=== PATIENT | female | born 1995 | race Caucasian/White ===

== ENCOUNTER 2017-01-30 21:50 | Outpatient (CLI) | payer OTHER ==
[~2017-01-30] VITALS: Ht 157.5 cm; Wt 47.8 kg
[~2017-01-30 21:50] MED LIST: DOCU-144 PO; PREN1TAB62 PO
[2017-01-30 22:34] VITALS: Ht 157.5 cm; Wt 47.8 kg
[2017-01-30 23:01] LABS: ADD SCAN DIFF NO
[2017-01-30 23:04] LABS: BASOPHILS % 0.3 % (0.0-2.0); EOSINOPHILS # 0.1 10^3/ul (0.0-0.5); EOSINOPHILS % 1.3 % (0.0-7.0); HEMATOCRIT 29.6 % (37.0-47.0); HEMOGLOBIN 9.9 g/dl (12.0-16.0); LYMPHOCYTES # 2.1 10^3/ul (0.8-2.9); LYMPHOCYTES % 20.2 % (18.0-55.0); MEAN CORPUSCULAR HEMOGLOBIN 27.3 pg (29.0-33.0); MEAN CORPUSCULAR HGB CONC 33.4 g/dl (32.0-37.0); MEAN CORPUSCULAR VOLUME 81.8 fl (72.0-104.0); MEAN PLATELET VOLUME 8.7 fl (7.4-10.4); MONOCYTES % 9.4 % (0.0-13.0); NEUTROPHIL # 7.1 10^3/ul (1.6-7.5); NEUTROPHILS % 68.3 % (30.0-74.0); PLATELET COUNT 382 10^3/UL (140-415); RED BLOOD COUNT 3.62 10^6/ul (4.20-5.40); RED CELL DISTRIBUTION WIDTH 14.4 % (11.5-14.5); WHITE BLOOD COUNT 10.4 10^3/ul (4.8-10.8)
[2017-01-30 23:12] LABS: ADD UMIC YES; UR ASCORBIC ACID 20 mg/dL (NEGATIVE); UR BILIRUBIN (Dip) 1+ mg/dL (NEGATIVE); UR BLOOD (Dip) NEGATIVE (NEGATIVE); UR CLARITY SLIGHTLY CLOUDY (CLEAR); UR COLOR AMBER (YELLOW); UR GLUCOSE (Dip) 1+ mg/dL (NEGATIVE); UR KETONES (Dip) TRACE mg/dL (NEGATIVE); UR LEUKOCYTE ESTERASE (Dip) NEGATIVE Leu/ul (NEGATIVE); UR MUCUS MANY /HPF (NONE SEEN); UR NITRITE (Dip) NEGATIVE (NEGATIVE); UR RBC 1 /HPF (0-5); UR SPECIFIC GRAVITY (Dip) 1.038 (1.003-1.030); UR SQUAMOUS EPITHELIAL CELL FEW /HPF (FEW); UR TOTAL PROTEIN (Dip) 1+ mg/dl (NEGATIVE); UR UROBILINOGEN (Dip) 1+ mg/dL (NEGATIVE)
[2017-01-30 23:28] LABS: CANNABINOIDS Negative (NEGATIVE); OPIATES Positive (NEGATIVE)
[2017-01-30 23:30] LABS: BARBITURATES Negative (NEGATIVE); BENZODIAZEPINES Negative (NEGATIVE); COCAINE Negative (NEGATIVE)
--- NOTE | 2017-01-30 23:38 | RADRPT ---
PROCEDURE: US OB. CLINICAL INDICATION: labor. TECHNIQUE: Multiple sonographic images of the pelvis were obtained. Transabdominal imaging only w as performed. The images were reviewed on a PACS workstation. COMPARISON: No prior studies are available for comparison. FINDINGS: The cervix is closed with a length of 3.0 cm. There is a single viable intrauterine gestation. Cardiac activity is present with 147 beats per minute. There is a breech presentation, head maternal left. Measurements were made in order to determine age. The results are as follows: BPD = 4.81 cm HC = 18.60 cm AC = 16.89 cm FL = 3.73 cm Estimated gestational age of approximately 21 weeks 2 days. The estimated date of delivery is 06/10/2017. The EFW = 447 g. The placenta is anterior, grade 0. There is no evidence for an abruption or placenta previa. There is a normal amount of amniotic fluid. The MVP measures 5.7 cm. IMPRESSION: 1. Single viable intrauterine gestation of approximately 21 weeks 2 days, based on ultrasound measu rements. The estimated date of delivery is 06/10/2017. RPTAT: HTAR .Palmer Freeman MD, Date Time Electronically viewed and signed by .Palmer Freeman MD, MD on 01/30/2017 23:38 .R/
--- NOTE | 2017-01-31 01:11 | TRIAGE ---
OB Triage Datetime Report Generated by CPN: 01/31/2017 01:11 Datetime: 01/31/2017 01:08 Stage of : OB Triage Datetime: 01/31/2017 01:02 Stage of : OB Triage Datetime: 01/31/2017 01:00 Stage of : OB Triage Datetime: 01/31/2017 00:46 Heart Rate FHR Baseline Rate: 155 Comments: EFM HEART TONES Datetime: 01/30/2017 23:58 Comments: UNABLE TO KEEP CONTINUOUS FHT D/T GA AND CONSTANT PATIENT MOVEMENT Datetime: 01/30/2017 23:05 Stage of : OB Triage Datetime: 01/30/2017 22:17 EGA: 21.2 Datetime: 01/30/2017 22:16 Time of Arrival: 01/30/2017 21:41 Arrived By: Wheelchair Arrived From: Home Chief Complaint: UC'S Movement: Present Contractions: Regular Contractions: CONSTANT Rupture of Membranes: Denies Vaginal Discharge: Denies Recent Sexual Intercouse: Denies Abdominal Trauma: Not Applicable Patient Complaints: Contractions Time Provider Notified: 01/30/2017 22:28 Provider Notified: HADADIAN Initial Plan: EFM, CALL OB Datetime: 01/30/2017 22:13 Stage of : OB Triage Temperature Route: Oral Labor Evaluation Monitor Mode: Palpation Resting Tone [place]: Relaxed Monitor Mode: External US Comments: UNABLE TO KEEP ON MONITOR, ONLY ABLE TO GRAVITY METER OBSERVER SPORADIC HEART TONES WITH EFM, PO SSIBLE FETUS UNDER 20WKS GA Datetime: 01/30/2017 22:00 Stage of : OB Triage Assessment Type: Triage Maternal Assessment Level of Consciousness: Fully Conscious Headache: Denies Blurred Vision: No Respiratory Effort: Unlabored; Regular Rhythm; Equal Expansion Breath Sounds, Left: Clear and Equal Breath Sounds, Right: Clear and Equal Nausea/Vomiting: Denies RUQ Epigastric Pain: Denies Facial Edema: None Fall Risk Assessment History of Falling: (0) No Secondary Diagnosis: (0) No Ambulatory Aid: (0) Bedrest/Nurse Assist IV Therapy: (0) No Gait: (0) Normal/Bedrest/Immobile Mental Status: (0) Oriented to Own Ability Fall Score: 0 Fall Risk Score Definition: No Risk: No action required
[2017-01-31] MEDS ORDERED: ONDA4TAB14 PO (05:36)
[2017-01-31] MEDS ORDERED: HYDR-906 PO (05:36)
[2017-02-01 12:39] LABS: RUBELLA ANTIBODY - IGG 4.06 index
--- NOTE | 2017-02-07 03:45 | HP ---
DATE OF ADMISSION: 01/30/2017 DATE OF DICTATION: 02/04/2017, late entry note. The patient seen and examined on 01/30/2017. CHIEF COMPLAINT: Abdominal pain. HISTORY OF THE PRESENT ILLNESS: The patient is a 21-year-old II, para 0, 0, 1, 0, with single intrauterine at 21 weeks complaining of abdominal pain and pelvic pressure. She has history of heroin, methamphetamine use. She is a former smoker, which she quit during . PHYSICAL EXAMINATION: GENERAL: The patient is in pain. She has appropriate mood and affect. VITAL SIGNS: Blood pressure 110/62, pulse rate 78, respiratory rate 16, temperature 98.1. O2 saturation is 99 percent. HEART: Regular rhythm and rate. No murmur. LUNGS: Clear to auscultation bilaterally. ABDOMEN: Soft. Nontender. No rebound or guarding. Uterine fundal height is 20 weeks. heart rate 14 BPM regular. BACK: No CVA tenderness bilateral. EXTREMITIES: No edema, varicose veins, thigh or calf tenderness. Homans' sign is negative. LABORATORY DATA: Urine drug screen is positive for amphetamine and opioid. IMAGING: Ultrasound performed revealed single intrauterine with estimated weight of 4479 grams. Cervical length 3 cm. Maximal westical pocket of 5.1 cm. ASSESSMENT AND PLAN: 1. The patient is a 21-year-old, II, para 0, 0, 1, 0 with single intrauterine at 21 weeks, complaining of abdominal pain. Her exam was unremarkable. Ultrasound performed as noted above. Labs and ultrasound findings discussed with the patient and her family in detail. All expressed understanding and all questions understood. Signs and symptoms of labor and preeclampsia discussed. She was discharged home in stable condition. Follow up with her primary LADLE HANDLER in 2 days. 2. The patient has history of heroin, methamphetamine and tobacco use. Current urine drug screen is positive for amphetamine and opioid.I discussed cessation and effects on the with patient and family member, all expressed understanding. I strongly recommend follow up with her primary. Dictated By: Adriana Arriaga MD /edvin/ksenia /Document#: [id number] BRIDGET
== END 2017-01-31 01:08 | disposition home or self-care (01) ==
LOC: OBT 21:50 → L-D 21:52 → OBT 01-31 01:08
PROVIDERS: ATTEND Obstetrics & Gynecology
DX: O26.892 Other specified pregnancy related conditions, second trimester (principal); Z3A.21 21 weeks gestation of pregnancy; R10.9 Unspecified abdominal pain; O99.322 Drug use complicating pregnancy, second trimester; F15.10 Other stimulant abuse, uncomplicated; O99.332 Smoking (tobacco) complicating pregnancy, second trimester
CPT/HCPCS: 76815; 76817; 80307; 81001; 85025; 86592; 86703; 86762; 86900; 86901; 87340; Z7500; G0463

== ENCOUNTER 2017-01-31 01:12 | Emergency (ER) | END 2017-01-31 06:58 | disposition home or self-care (01) | DX: O99.342 Other mental disorders complicating pregnancy, second trimester (principal); F11.23 Opioid dependence with withdrawal; Z3A.21 21 weeks gestation of pregnancy | CPT/HCPCS: 96372; J2060; Z7502 ==

== ENCOUNTER 2017-05-04 15:20 | Outpatient (CLI) | payer OTHER ==
[~2017-05-04] VITALS: Ht 157.5 cm; Wt 62.6 kg
[~2017-05-04 15:20] MED LIST changes: -DOCU-144 PO; +HYDR-906 PO; +ONDA4TAB14 PO; -PREN1TAB62 PO
[2017-05-04] MEDS ORDERED: PNV11TAB PO (15:48)
[2017-05-04 15:50] VITALS: BP 100/62; PULSE 90; RESP 18
--- NOTE | 2017-05-04 17:04 | RADRPT ---
PROCEDURE: US OB. CLINICAL INDICATION: labor. TECHNIQUE: Multiple sonographic images of the pelvis were obtained. Transabdominal imaging only w as performed. The images were reviewed on a PACS workstation. COMPARISON: 01/30/2017. FINDINGS: There is a single living intrauterine gestation in cephalic position. There is an anterior placenta. There is no evidence of previa. Adequate amnionic fluid is demonstrated. The amniotic fluid index is 13.3 cm. Active cardiac motion is seen at 130 beats per minute. . The biparietal diameter is 8.47 cm. The head circumference is 30.58 cm. The abdominal circumference is 29.97 cm. The femur length is 6.59 cm. Consistent with: A mean gestational age of 34 weeks 0 days Estimated weight is 2318 plus or minus 348 g. IMPRESSION: 1. Single living intrauterine gestation in cephalic position with a mean gestational age by ultraso und of 34 weeks 0 days plus or minus 17 days with estimated date of delivery of 06/15/2017 by ultras ound criteria. RPTAT: AACC Physician Holly Date Time Electronically viewed and signed by Physician Holly on 05/04/2017 17:03 /
--- NOTE | 2017-05-04 17:05 | RADRPT ---
PROCEDURE: OB ultrasound for biophysical profile CLINICAL INDICATION: labor. TECHNIQUE: Multiple sonographic images of the pelvis were obtained. Transabdominal view of the gr avid uterus are available for review. The images were reviewed on a PACS workstation. COMPARISON: 01/30/2017. FINDINGS: breathing movement = 2/2 tone = 2/2 motion = 2/2 Quantitative amniotic fluid volume = 2/2 IVONNE = 13.3 cm Single live intrauterine with cardiac activity at 133 beats per minute. There is a anterior placenta without previa or abruption. IMPRESSION: 1. Single living intrauterine gestation in cephalic position. 2. Biophysical profile = 8/8. 3. IVONNE = 13.3 cm. RPTAT: AACC Physician Holly Date Time Electronically viewed and signed by Physician Holly on 05/04/2017 17:05 /
[2017-05-04 17:21] LABS: BASOPHILS % 0.6 % (0.0-2.0); EOSINOPHILS # 0.2 10^3/ul (0.0-0.5); EOSINOPHILS % 2.2 % (0.0-7.0); HEMATOCRIT 31.1 % (37.0-47.0); HEMOGLOBIN 10.7 g/dl (12.0-16.0); LYMPHOCYTES # 1.8 10^3/ul (0.8-2.9); LYMPHOCYTES % 26.6 % (18.0-55.0); MEAN CORPUSCULAR HEMOGLOBIN 29.8 pg (29.0-33.0); MEAN CORPUSCULAR HGB CONC 34.4 g/dl (32.0-37.0); MEAN CORPUSCULAR VOLUME 86.6 fl (72.0-104.0); MEAN PLATELET VOLUME 8.9 fl (7.4-10.4); MONOCYTE # 0.6 10^3/ul (0.3-0.9); MONOCYTES % 9.5 % (0.0-13.0); NEUTROPHIL # 4.1 10^3/ul (1.6-7.5); NEUTROPHILS % 60.7 % (30.0-74.0); PLATELET COUNT 349 10^3/UL (140-415); RED BLOOD COUNT 3.59 10^6/ul (4.20-5.40); RED CELL DISTRIBUTION WIDTH 15.5 % (11.5-14.5); WHITE BLOOD COUNT 6.7 10^3/ul (4.8-10.8)
[2017-05-04 21:15] LABS: ADD UMIC YES; UR ASCORBIC ACID 20 mg/dL (NEGATIVE); UR BACTERIA FEW /HPF (NONE SEEN); UR BILIRUBIN (Dip) NEGATIVE (NEGATIVE); UR BLOOD (Dip) NEGATIVE (NEGATIVE); UR CLARITY SLIGHTLY CLOUDY (CLEAR); UR COLOR YELLOW (YELLOW); UR GLUCOSE (Dip) 1+ mg/dL (NEGATIVE); UR KETONES (Dip) NEGATIVE (NEGATIVE); UR LEUKOCYTE ESTERASE (Dip) 1+ Leu/ul (NEGATIVE); UR MUCUS MODERATE /HPF (NONE SEEN); UR NITRITE (Dip) NEGATIVE (NEGATIVE); UR RBC 1 /HPF (0-5); UR SPECIFIC GRAVITY (Dip) 1.024 (1.003-1.030); UR SQUAMOUS EPITHELIAL CELL FEW /HPF (FEW); UR TOTAL PROTEIN (Dip) NEGATIVE (NEGATIVE); UR UROBILINOGEN (Dip) 2+ mg/dL (NEGATIVE)
[2017-05-04 21:25] LABS: CANNABINOIDS Negative (NEGATIVE); OPIATES Positive (NEGATIVE)
[2017-05-04 21:26] LABS: BARBITURATES Negative (NEGATIVE); BENZODIAZEPINES Negative (NEGATIVE); COCAINE Negative (NEGATIVE)
[2017-05-04] MEDS ORDERED: TERBUTALINE 1 MG/ML INJ SC ONE (21:30)
[2017-05-04] MEDS ORDERED: TERBUTALINE 1 ML ONE (21:37)
[2017-05-04] MEDS ORDERED: HYDR250V6 IM (22:28)
--- NOTE | 2017-05-04 23:00 | PN ---
Triage Information Date/Time 05/04/170 Reason for visit: Vag spotting / bleeding Weeks of Gestation 34w5d /Para Diabetes: none Hypertention: none Additional information Hx of coccaine use and meth with previous delivered by C/S for distress today UDS pos for opiates was on methadone up to 2mo ago but not onm anything cecilia last dose on 05/02/17 Objective Vital Signs Date Time Temp Pulse Resp B/P Pulse Ox O2 Delivery O2 Flow Rate FiO2 05/04/17 15:50 98.1 90 18 100/62 Room Air Heart Rate: 140's Contractions: >10 Minutes Apart Results/Medications Result Diagram: 05/04/17 1715 Results 24 hrs Laboratory Tests Test 05/04/17 17:15 05/04/17 20:20 White Blood Count 6.7 # Red Blood Count 3.59 L Hemoglobin 10.7 L Hematocrit 31.1 L Mean Corpuscular Volume 86.6 Mean Corpuscular Hemoglobin 29.8 Mean Corpuscular Hemoglobin Concent 34.4 Red Cell Distribution Width 15.5 H Platelet Count 349 Mean Platelet Volume 8.9 Neutrophils % 60.7 Lymphocytes % 26.6 Monocytes % 9.5 Eosinophils % 2.2 Basophils % 0.6 Nucleated Red Blood Cells % 0.0 Neutrophils # 4.1 Lymphocytes # 1.8 Monocytes # 0.6 Eosinophils # 0.2 Basophils # 0.0 Nucleated Red Blood Cells # 0.0 Urine Color YELLOW Urine Clarity SLIGHTLY CLOUDY A Urine pH 6.0 Urine Specific [place] 1.024 Urine Ketones NEGATIVE Urine Nitrite NEGATIVE Urine Bilirubin NEGATIVE Urine Urobilinogen 2+ H Urine Leukocyte Esterase 1+ H Urine Microscopic RBC 1 Urine Microscopic WBC 3 Urine Squamous Epithelial Cells FEW Urine Bacteria FEW A Urine Mucus MODERATE Urine Hemoglobin NEGATIVE Urine Glucose 1+ H Urine Total Protein NEGATIVE Urine Opiates Screen Positive Urine Barbiturates Negative Urine Amphetamines Screen Negative Urine Benzodiazepines Screen Negative Urine Cocaine Screen Negative Urine Cannabinoids Negative Medications terbutaline X1 Imaging Results BPP 02/28 IVONNE 13.3 EFW 2318 Placenta ant , no previa cephalic Disposition: Discharge Assessment/Plan IUP 34w5d NIL opiates pos PLAN f/u at [facility] where she has P[facility] RTH PRNOELLE RAMIREZ MD May 04, 2017 23:00
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
== END 2017-05-04 22:50 | disposition home or self-care (01) ==
LOC: OBT 15:20 → L-D 15:23 → OBT 22:50
DX: O46.8X3 Other antepartum hemorrhage, third trimester (principal); O34.219 Maternal care for unspecified type scar from previous cesarean delivery; Z3A.34 34 weeks gestation of pregnancy
CPT/HCPCS: 36415; 76815; 76818; 80307; 81001; 85025; 86850; 86900; 86901; 87086; 96372; J3105; Z7500; G0463

== ENCOUNTER 2017-05-24 20:53 | Inpatient (IN) | payer OTHER ==
[~2017-05-24] VITALS: Ht 157.5 cm; Wt 63.6 kg
[~2017-05-24 20:53] MED LIST changes: -HYDR-906 PO; +HYDR250V6 IM; -ONDA4TAB14 PO; +PNV11TAB PO
[2017-05-24] MEDS ORDERED: LACTATED RINGER'S 1,000 ML IV SCH (21:19)
[2017-05-24] MEDS ORDERED: TERBUTALINE 1 ML ONE (21:23)
[2017-05-24] MEDS ORDERED: METHYLERGONOVINE 0.2 MG INJ IM PRN (21:30)
[2017-05-24] MEDS ORDERED: MISOPROSTOL 200 MCG TAB PR PRN (21:30)
[2017-05-24] MEDS ORDERED: OXYTOCIN 30 UNITS/LR 500 ML IV PRN (21:30)
[2017-05-24] MEDS ORDERED: OXYTOCIN 30 UNITS/LR 500 ML IV SCH (21:30)
[2017-05-24] MEDS ORDERED: TERBUTALINE 1 MG/ML INJ SC ONE (21:30)
[2017-05-24] MEDS ORDERED: CEFAZOLIN 2 GM/50 ML (PMX) 50 ML IV SCH (21:30)
[2017-05-24] MEDS ORDERED: CARBOPROST 250 MCG INJ IM PRN (21:30)
[2017-05-24 21:38] VITALS: Ht 157.5 cm; Wt 63.6 kg
[2017-05-24 21:39] VITALS: BP 116/55; PULSE 67; RESP 18
--- NOTE | 2017-05-24 21:48 | TRIAGE ---
OB Triage Datetime Report Generated by CPN: 05/24/2017 21:48 Datetime: 05/24/2017 21:31 Assessment Type: Admission Assessment Vaginal Bleeding: None Maternal Assessment Level of Consciousness: Fully Conscious DTR's/Clonus: DTRs 2+; No Clonus Headache: Denies Blurred Vision: No Respiratory Effort: Unlabored; Regular Rhythm; Equal Expansion Breath Sounds, Left: Clear and Equal Breath Sounds, Right: Clear and Equal Nausea/Vomiting: Denies RUQ Epigastric Pain: Denies Facial Edema: None Fall Risk Assessment History of Falling: (0) No Secondary Diagnosis: (0) No Ambulatory Aid: (0) Bedrest/Nurse Assist Gait: (0) Normal/Bedrest/Immobile Mental Status: (0) Oriented to Own Ability Pain Assessment Pain Scale: 10 Pain Location: Abdomen Datetime: 05/24/2017 21:30 Time of Arrival: 05/24/2017 21:30 EGA: 36.6 Arrived By: Ambulatory Arrived From: Home Chief Complaint: UC'S Movement: Present Contractions: Irregular Rupture of Membranes: Denies Vaginal Bleeding: None Vaginal Discharge: Denies Recent Sexual Intercouse: Denies Abdominal Trauma: Not Applicable Patient Complaints: Contractions Time Provider Notified: 05/24/2017 21:00 Provider Notified: Initial Plan: ADMIT TO L_D, US FOR EFW Datetime: 05/24/2017 21:10 Labor Evaluation Frequency: 3 Monitor Mode: External Duration (sec)2399: 70-90 Quality: Moderate Pattern: Normal: <= 5 Contractions in 10 Minutes Resting Tone [place]: Relaxed Heart Rate FHR Baseline Rate: 135 Monitor Mode: External US FHR Baseline Changes: No Baseline Change Variability: Moderate 6-25 bpm Accelerations: 15X15 Decelerations: None Category: Category I Datetime: 05/24/2017 21:08 Effacement (%): 70 Station: -3 Datetime: 05/24/2017 21:07 Vaginal Exam Dilatation (cms): 2.0 Membrane Status: Intact Datetime: 05/04/2017 15:39 Fall Score: 0 Fall Risk Score Definition: No Risk: No action required Datetime: 05/04/2017 15:27 EGA: 34.0 Datetime: 01/30/2017 22:17 EGA: 20.4 Datetime: 01/30/2017 22:00 Fall Score: 0 Fall Risk Score Definition: No Risk: No action required
[2017-05-24] MEDS ORDERED: FERR325T5 PO (22:16)
--- NOTE | 2017-05-24 22:19 | HP ---
Date/Time of Note Date/Time of Note DATE: 05/24/17 TIME: 22:12 OB - History Hx of Present Free Text/Dictation with intrauterine at 37 weeks and 4 days by 21 weeks ultrasound at this facility, with due date of June 10, 2017. She presented with complaint of uterine contractions. Estimated gestational age by her very first ultrasound at 21 weeks is 37 weeks and 4 days. Patient had a history of substance abuse. Drug of choice, Meth and Heroin. Admitted in current at 24 weeks due to withdrawal . She was then referred to [facility] for care. Patient status post last year at this facility. She had was supposed to have her scheduled for June 05, [address] [facility], however due to presence of regular uterine contractions and labor presented to the hospital. No records available at this time. Patient was noted to be 2 cm dilated 70% -2. Vertex presentation. Regular contractions painful on the monitor is seen every 2-3 minutes. heart tracing category 1. Estimated Due Date: Jun 10, 2017 : 2 Para: 1 Spontaneous : 0 Care: Limited Care Ultrasounds: Other (Normal third trimester ultrasound) Obstetrical Complications: Other (History of substance abuse. Limited care. History of 1 last year at this facility) Medical Complications: None Other Concerns: Substance abuse and prior . Urine toxicology was positive in current as well in this facility Limited care Past Family/Social History * Past Medical, Surgical, Family and Obstetric Histories reviewed from chart. OB Admission Exam Vital Signs Vital Signs Vital Signs Date Time Temp Pulse Resp B/P Pulse Ox O2 Delivery O2 Flow Rate FiO2 05/24/17 21:39 99.0 67 18 116/55 99 Room Air Physical Exam HEENT: WNL Heart: Rhythm Normal Lungs: Clear Abdomen: WNL Extremities: Normal Cervical Dilatation: 2cm Effacement: 75% Station: -2 Membranes: Intact Heart Rate: 130's Accelerations: Accelerations Present Decelerations: No Decelerations Varibility: Moderate Contractions on Admission: < 5 Minutes Apart Intensity: Firm Last 72 hours Lab Results CBC & BMP 05/24/17 21:25 OB Assessment/Plan Reason for admission: active labor Other Assessment: IUP at 37 weeks and 4 days by patient's best due date based on available earliest ultrasound at this facility History of 1. Labor History of substance abuse during GBS unknown records are unavailable. Will try to obtain otherwise will order Patient desires to proceed with repeat section Risk and benefit of section including risk of infection, bleeding damage to surrounding structures including bowel and bladder risk of blood transfusion including but not limited to blood borne infection including HIV, hepatitis B and C and transfusion reaction discussed with the patient in detail and informed consent was obtained. Patient verbalized understanding all above discussion and desires to proceed. All questions were answered to the patient's best satisfaction OR and NICU team was notified to be available for post delivery of due to risk for withdrawal. Anef for for Prophylactic treatment prior to surgery MAUREEN SINGH MD May 24, 2017 22:19
--- NOTE | 2017-05-24 23:33 | CONS ---
Date/Time of Note Date/Time of Note DATE: 05/24/17 TIME: 23:30 Consultation Date/Type/Reason Admit Date/Time May 24, 2017 at 21:13 Initial Consult Date 05/24/17 Type of Consultation: Anesthesiology Reason for Consultation Preop 24 HR Interval Summary Free Text/Dictation Pt preop'd for repeat c/s due to being in active labor. Pt is NPO for 3 hours as per herself but surgery is urgent as per Dr. Sepulveda. Will proceed with preop meds. Exam/Review of Systems Vital Signs Vitals Vital Signs Date Time Temp Pulse Resp B/P Pulse Ox O2 Delivery O2 Flow Rate FiO2 05/24/17 21:39 99.0 67 18 116/55 99 Room Air Results Result Diagram: 05/24/172124 Results 24 hrs Laboratory Tests Test 05/24/17 21:25 White Blood Count 10.8 # Red Blood Count 4.04 L Hemoglobin 12.1 Hematocrit 34.7 L Mean Corpuscular Volume 85.9 Mean Corpuscular Hemoglobin 30.0 Mean Corpuscular Hemoglobin Concent 34.9 Red Cell Distribution Width 14.6 H Platelet Count 324 Mean Platelet Volume 10.1 Neutrophils % 70.3 Lymphocytes % 19.1 Monocytes % 8.7 Eosinophils % 1.0 Basophils % 0.4 Nucleated Red Blood Cells % 0.0 Neutrophils # 7.6 H Lymphocytes # 2.1 Monocytes # 0.9 Eosinophils # 0.1 Basophils # 0.0 Nucleated Red Blood Cells # 0.0 Prothrombin Time 12.0 L Prothrombin Time Ratio 0.9 INR International Normalized Ratio 0.89 Activated Partial Thromboplast Time 33.6 Hepatitis B Surface Antigen NEGATIVE Medications Medications Current Medications Lactated Ringer's 1,000 ml @ 125 mls/hr Q8H IV Last administered on 05/24/17t 21:35; Admin Dose 125 MLS/HR; Start 05/24/17 at 21:19 Cefazolin Sodium/ Dextrose 50 ml @ 100 mls/hr ONCE IV ; Start 05/24/17 at 21:30 Oxytocin/Lactated Ringer's 500 ml @ 125 mls/hr ONCE IV ; Start 05/24/17 at 21: 30 Oxytocin/Lactated Ringer's 500 ml @ 0 mls/hr ONCE PRN IV For Hemorrhage Management; Start 05/24/17 at 21:30 Methylergonovine Maleate (Methergine) 0.2 mg ONCE PRN IM VAGINAL BLEEDING; Start 05/24/17 at 21:30 Carboprost Tromethamine (Hemabate) 250 mcg ONCE PRN IM VAGINAL BLEEDING; Start 05/24/17 at 21:30 Misoprostol (Cytotec) 1,000 mcg ONCE PRN MN VAGINAL BLEEDING; Start 05/24/17 at 21:30 RYDER MENDEZ May 24, 2017 23:33
[2017-05-24] MEDS ORDERED: morphine SULFATE/PF (10 MG/10 ML) INJ ONE (23:53)
[2017-05-25] MEDS ORDERED: EPHEDrine SULFATE 50 MG/5 ML SYG ONE
[2017-05-25] MEDS ORDERED: OXYTOCIN 30 UNITS/LR 500 ML BAG IV ONE
[2017-05-25] MEDS ORDERED: PHENYLephrine (100 MCG/ML) 5ML SYG ONE ×4 (00:12→01:02)
[2017-05-25] MEDS ORDERED: FENTAnyl 50 MCG/ML VIAL ONE (00:30)
[2017-05-25] MEDS ORDERED: LANOLIN 7 GM TUBE TOP PRN (01:30)
[2017-05-25] MEDS ORDERED: MISOPROSTOL 200 MCG TAB PR PRN (01:30)
[2017-05-25] MEDS ORDERED: ZOLPIDEM 5 MG TAB PO PRN ×2 (01:30→02:00)
[2017-05-25] MEDS ORDERED: OXYTOCIN 30 UNITS/LR 500 ML IV PRN (01:30)
[2017-05-25] MEDS ORDERED: NALOXONE (0.4 MG/ML) INJ IV PRN ×3 (01:30→02:00)
[2017-05-25] MEDS ORDERED: FENTAnyl 50 MCG/ML VIAL IV PRN ×3 (01:30)
[2017-05-25] MEDS ORDERED: HYDROmorphONE (0.2 MG/ML) 10ML SYG IV PRN ×3 (01:30)
[2017-05-25] MEDS ORDERED: DIPHENHYDRAMINE 50 MG INJ IV PRN ×2 (01:30)
[2017-05-25] MEDS ORDERED: KETOROLAC 30 MG INJ IV PRN (01:30)
[2017-05-25] MEDS ORDERED: HYDROmorphONE 0.5 MG/0.5 ML SYG IV PRN ×5 (01:30→06:30)
[2017-05-25] MEDS ORDERED: CARBOPROST 250 MCG INJ IM PRN (01:30)
--- NOTE | 2017-05-25 01:45 | OPR ---
Operative Report Planned Procedure Free Text/Dictation 05/25/2017 Procedure date May 25, 2017 Procedure(s) Repeat section Performed by see signature line Assisting provider: AVA STOCK MD Anesthesiologist: RYDER MENDEZ Pre-procedure diagnosis 1. History of section x 1 2. Labor pain 3. IUP at 37 + weeks 4. History of Subtance abuse 5. ADHD Anesthesia Type: spinal Procedure Description Under satisfactory [Spinal ] anesthesia, the patient was prepped and draped and placed in a supine position, tilted to the left. Pfannenstiel incision was made , carried through the subcutaneous tissue. Bleeders brought under control with electrocautery. Fascia incised to the length of the incision. Rectus muscles from the fascia, divided midline. Peritoneum exposed and entered sharply with careful attention to the adjacent structures, intraabdominal cavity entered without any complication. . Exploration of abdomen revealed gravid uterus. Bladder flap was developed. Transverse incision was made in the lower segment of the uterus. Amniotic sac ruptured. [Clear] amniotic fluid noted. Baby's head was noted to be in OP position and it was delivered without any complication. Upon delivery of the head, . [] Nasal oropharyngeal suction was performed. The baby was handed to the team for immediate attention. The placenta was delivered manually intact. Uterine cavity was cleaned with wet sponge and drainage established. Uterus closed in 2 layers using 1-0 monocryl n continuous fashion. Peritoneal cavity irrigated with warm saline. Sponge, needle and instrument count reported to be correct. Abdominal peritoneum closed with [2-0] continuously. Rectus muscle approximated with [2-0 vicryl ]. Fascia closed with [1-0 vicryl ], and skin closed with endsorb. Estimated blood loss [500]mL. Urine bag was draining clear fluid. Hemostasis was complete. Patient tolerated the procedure well and was transferred to recovery in stable condition. Post-Procedure Findings: Live Baby [], Apgars [] and [], weight [], position [], [] presentation []cord. Estimated blood loss: other (500) Specimen(s): yes (see below) Grafts/Implants: no Complication(s): no Pt Condition post procedure: stable Disposition: PACU Physician Certification I, the undersigned physician, hereby certify that I have discussed the procedure described in this consent form with this patient (or the patient's legal pharmaceutical specialty representative), including: * The risk and benefits of the procedure; * Any adverse reactions that may reasonably be expected to occur; * Any alternative efficacious methods of treatment which may be medically viable ; * The potential problems that may occur during recuperation; * Potential for blood transfusion and associated risks/benefits; and * Any research or economic interest I may have regarding this treatment. I further certify that the patient/legally responsible person was encouraged to ask question and that all questions were answered. MAUREEN SINGH MD May 25, 2017 01:45
[2017-05-25] MEDS ORDERED: ONDANSETRON 4 MG INJ IV PRN (02:00)
[2017-05-25] MEDS ORDERED: HYDROmorphONE 1 MG/ML SYG IV PRN ×2 (02:01)
[2017-05-25] MEDS: DIPHENHYDRAMINE 50 MG INJ IV PRN ×2 (02:05→22:40)
[2017-05-25] MEDS: OXYTOCIN 30 UNITS/LR 500 ML IV SCH ×2 (02:08→06:21)
[2017-05-25 04:59] VITALS: BP 113/59; PULSE 92; RESP 17
[2017-05-25] MEDS: IBUPROFEN 600 MG TAB PO SCH ×3 (06:00→20:52)
[2017-05-25] MEDS: HYDROmorphONE 0.5 MG/0.5 ML SYG IV PRN ×3 (06:21→20:58)
[2017-05-25 08:27] VITALS: BP 103/50; PULSE 87; RESP 18
[2017-05-25] MEDS: LACTATED RINGER'S 1,000 ML IV SCH ×3 (10:21→18:38)
[2017-05-25 11:46] VITALS: BP 96/53; PULSE 74; RESP 16
[2017-05-25 19:30] VITALS: BP 98/54; PULSE 75; RESP 18
[2017-05-26 00:16] VITALS: BP 100/57; PULSE 80; RESP 17
[2017-05-26] MEDS: HYDROmorphONE 0.5 MG/0.5 ML SYG IV PRN (00:16)
[2017-05-26] MEDS: LACTATED RINGER'S 1,000 ML IV SCH (01:00)
[2017-05-26] MEDS: HYDROCODONE/APAP (5/325) TAB PO PRN ×4 (03:37→19:52)
[2017-05-26 04:00] VITALS: BP 98/51; PULSE 68; RESP 18
[2017-05-26] MEDS: IBUPROFEN 600 MG TAB PO SCH ×5 (05:24→23:56)
[2017-05-26 09:05] VITALS: BP 102/56; PULSE 68; RESP 19
--- NOTE | 2017-05-26 11:26 | QN ---
Documentation Comment POD#2 is stable afebrile tolerates diet ambulates No VB +flatus ,voids, VS stable Gen NAD Abd soft NT ND Dressing to be removed Genitalia No blood at perinium --->discharge plan tomorrow SONIA TAYLOR M.D. May 26, 2017 11:26
[2017-05-26 15:30] VITALS: BP 99/59; PULSE 61; RESP 16
[2017-05-26 19:50] VITALS: BP 95/55; PULSE 72; RESP 18
[2017-05-27] MEDS: HYDROCODONE/APAP (5/325) TAB PO PRN ×3 (03:49→20:43)
[2017-05-27 04:10] VITALS: BP 105/58; PULSE 61; RESP 18
[2017-05-27] MEDS: IBUPROFEN 600 MG TAB PO SCH ×3 (05:33→17:40)
[2017-05-27 08:00] VITALS: BP 106/58; PULSE 76; RESP 20
--- NOTE | 2017-05-27 11:14 | PN ---
Date/Time of Note Date/Time of Note DATE: 05/27/17 TIME: 11:12 OB Subjective Subjective Subjective May 27, 2017 Post C section day 2 Doing Well Afebrile Ambulatory Chest Clear Breasts are soft , Nipples are intact Abdomen is soft Fundus is firm Moderate amount of lochia Incision is clean ,No evidence of infection No calf tenderness No ankle edema Current Medications Medications (Trade) Dose Ordered Sig/Haider Route PRN Reason Start Time Stop Time Status Last Admin Dose Admin Lactated Ringer's 1,000 ml @ 125 mls/hr Q8H IV 05/24/17 21:19 05/25/17 01:31 DC 05/24/17 21:35 Cefazolin Sodium/ Dextrose 50 ml @ 100 mls/hr ONCE IV 05/24/17 21:30 05/25/17 01:31 DC Oxytocin/Lactated Ringer's 500 ml @ 125 mls/hr ONCE IV 05/24/17 21:30 05/25/17 01:31 DC Oxytocin/Lactated Ringer's 500 ml @ 0 mls/hr ONCE PRN IV For Hemorrhage Management 05/24/17 21:30 05/25/17 01:31 DC Methylergonovine Maleate (Methergine) 0.2 mg ONCE PRN IM VAGINAL BLEEDING 05/24/17 21:30 05/25/17 01:31 DC Carboprost Tromethamine (Hemabate) 250 mcg ONCE PRN IM VAGINAL BLEEDING 05/24/17 21:30 05/25/17 01:31 DC Misoprostol (Cytotec) 1,[address] VAGINAL BLEEDING 05/24/17 21:30 05/25/17 01:31 DC Terbutaline Sulfate 0.25 mg 0.25 mg ONCE ONCE SC 05/24/17 21:30 05/24/17 21:31 DC 05/24/17 21:36 Terbutaline Sulfate (Brethine) 1 ml @ ud STK-MED ONCE .ROUTE 05/24/17 21:23 05/24/17 21:24 DC Morphine Sulfate (Duramorph) 10 mg STK-MED ONCE .ROUTE 05/24/17 23:53 05/24/17 23:54 DC Phenylephrine HCl (Marcio-Synephrine Inj Syg) 500 mcg STK-MED ONCE .ROUTE 05/25/17 00:12 05/25/17 00:13 DC Phenylephrine HCl (Marcio-Synephrine Inj Syg) 500 mcg STK-MED ONCE .ROUTE 05/25/17 00:17 05/25/17 00:18 DC Fentanyl (Sublimaze) 100 mcg STK-MED ONCE .ROUTE 05/25/17 00:30 05/25/17 00:31 DC Phenylephrine HCl (Marcio-Synephrine Inj Syg) 500 mcg STK-MED ONCE .ROUTE 05/25/17 00:46 05/25/17 00:47 DC Phenylephrine HCl (Marcio-Synephrine Inj Syg) 500 mcg STK-MED ONCE .ROUTE 05/25/17 01:02 05/25/17 01:03 DC Hydromorphone HCl (Dilaudid (Rec)) 0.2 mg PACU ORDER PRN IV MILD PAIN LEVEL 1-3 05/25/17 01:30 05/25/17 01:31 DC Hydromorphone HCl (Dilaudid (Rec)) 0.4 mg PACU ORDER PRN IV MODERATE PAIN LEVEL 4-6 05/25/17 01:30 05/25/17 01:31 DC Hydromorphone HCl (Dilaudid (Rec)) 0.6 mg PACU ORDER PRN IV SEVERE PAIN LEVEL 7-10 05/25/17 01:30 05/25/17 01:31 DC Fentanyl (Sublimaze) 25 mcg PACU ORDER PRN IV MILD PAIN LEVEL 1-3 05/25/17 01:30 05/25/17 01:31 DC Fentanyl (Sublimaze) 50 mcg PACU ODER PRN IV MODERATE PAIN LEVEL 4-6 05/25/17 01:30 05/25/17 01:31 DC Fentanyl (Sublimaze) 75 mcg PACU ORDER PRN IV SEVERE PAIN LEVEL 7-10 05/25/17 01:30 05/25/17 01:31 DC Diphenhydramine HCl (Benadryl) 25 mg PACU ORDER PRN IV PRURITUS 05/25/17 01:30 05/25/17 01:31 DC Naloxone HCl (Narcan) 0.1 mg Q2M PRN IV FOR RESP RATE 8 OR LESS 05/25/17 01:30 05/25/17 01:31 DC Ketorolac Tromethamine (Toradol) 30 mg Q6H PRN IV PAIN 05/25/17 01:30 05/25/17 01:31 DC Hydromorphone HCl (Dilaudid) 0.2 mg Q3H PRN IV PAIN LEVEL 1-5 05/25/17 01:30 05/25/17 01:31 DC Hydromorphone HCl (Dilaudid) 0.4 mg Q3H PRN IV PAIN LEVEL 6-10 05/25/17 01:30 05/25/17 01:31 DC Diphenhydramine HCl (Benadryl) 25 mg Q6H PRN IV ITCHING 05/25/17 01:30 05/25/17 01:31 DC Zolpidem Tartrate 5 mg 5 mg HS MAY REPEAT X 1 PRN PO INSOMNIA 05/25/17 01:30 05/25/17 01:31 DC Lactated Ringer's 1,000 ml @ 125 mls/hr Q8H IV 05/25/17 01:27 05/26/17 02:25 DC 05/25/17 18:38 Oxytocin/Lactated Ringer's 500 ml @ 125 mls/hr Q4H IV 05/25/17 01:27 05/25/17 09:26 DC 05/25/17 06:21 Acetaminophen/ Hydrocodone Bitart ([place] (5/325)) 1 tab Q4H PRN PO PAIN LEVEL 4-6 05/25/17 01:30 05/27/17 03:49 Ibuprofen (Motrin) 600 mg Q6 PO 05/25/17 06:00 05/27/17 05:33 Simethicone (Mylicon) 160 mg Q8H PRN PO DISTENSION/GAS/BLOATING 05/25/17 01:30 05/26/17 20:18 Lanolin (Yic-F-Moylny) 1 applic BEDSIDE MEDICATION PRN TOP BEDSIDE FOR BHANU TO NIPPLES 05/25/17 01:30 Diphtheria/ Tetanus/Acell Pertussis (Adacel) 0.5 ml ONCE ONCE IM* 05/28/17 09:00 05/28/17 09:01 Measles/Mumps/ Rubella Vaccine Live 0.5 ml 0.5 ml ONCE ONCE SC* 05/28/17 09:00 05/28/17 09:01 Oxytocin/Lactated Ringer's 500 ml @ 0 mls/hr ONCE PRN IV For Hemorrhage Management 05/25/17 01:30 Carboprost Tromethamine (Hemabate) 250 mcg ONCE PRN IM VAGINAL BLEEDING 05/25/17 01:30 Misoprostol (Cytotec) 1,[address] VAGINAL BLEEDING 05/25/17 01:30 Naloxone HCl (Narcan) 0.1 mg Q2M PRN IV FOR RESP RATE 8 OR LESS 05/25/17 02:00 05/26/17 01:59 DC Diphenhydramine HCl (Benadryl) 25 mg Q6H PRN IV ITCHING 05/25/17 02:00 05/26/17 01:59 DC 05/25/17 22:40 Ondansetron HCl (Zofran Inj) 4 mg Q6H PRN IV NAUSEA AND/OR VOMITING 05/25/17 02:00 05/26/17 01:59 DC 05/25/17 02:06 Zolpidem Tartrate (Ambien) 5 mg HS MAY REPEAT X 1 PRN PO INSOMNIA 05/25/17 02:00 05/26/17 01:59 DC Naloxone HCl (Narcan) 0.1 mg Q2M PRN IV FOR RESP RATE 8 OR LESS 05/25/17 02:00 05/26/17 01:59 DC Hydromorphone HCl (Dilaudid) 0.2 mg Q3H PRN IV PAIN LEVEL 1-5 05/25/17 02:00 05/25/17 02:01 DC Hydromorphone HCl (Dilaudid) 0.4 mg Q3H PRN IV PAIN LEVEL 6-10 05/25/17 02:00 05/25/17 02:01 DC Hydromorphone HCl (Dilaudid) 0.2 mg Q3H PRN IV PAIN LEVEL 1-5 05/25/17 02:01 05/25/17 06:01 DC Hydromorphone HCl (Dilaudid) 0.4 mg Q3H PRN IV PAIN LEVEL 6-10 05/25/17 02:01 05/25/17 06:02 DC 05/25/17 02:06 Hydromorphone HCl (Dilaudid) 0.2 mg Q3H PRN IV PAIN LEVEL 1-5 05/25/17 06:30 05/26/17 01:59 DC Hydromorphone HCl (Dilaudid) 0.4 mg Q3H PRN IV PAIN LEVEL 6-10 05/25/17 06:02 05/26/17 01:59 DC 05/26/17 00:16 Oxytocin/Lactated Ringer's 30 unit STK-MED ONCE IV 05/25/17 00:00 05/26/17 16:43 DC Ephedrine Sulfate 50 mg STK-MED ONCE .ROUTE 05/25/17 00:00 05/26/17 16:43 DC New born is doing well,bottle feeding AVA STOCK MD May 27, 2017 11:14
[2017-05-27 12:00] VITALS: BP 112/58; PULSE 59; RESP 15
[2017-05-27 15:35] VITALS: BP 99/47; PULSE 66; RESP 18
[2017-05-27 20:00] VITALS: BP 98/55; PULSE 66; RESP 18
[2017-05-28] MEDS: HYDROCODONE/APAP (5/325) TAB PO PRN ×3 (01:15→09:01)
[2017-05-28 04:00] VITALS: BP 92/42; PULSE 58; RESP 20
[2017-05-28] MEDS: IBUPROFEN 600 MG TAB PO SCH ×2 (06:39)
[2017-05-28 08:40] VITALS: BP 96/63; PULSE 61; RESP 18
[2017-05-28] MEDS ORDERED: DIPHTH/TET/ACEL PERTUSS (ADULT) 0.5 ML VIAL IM* ONE (09:00)
[2017-05-28] MEDS ORDERED: MEASLES,MUMPS,RUBELLA VACCINE INJ SC* ONE (09:00)
--- NOTE | 2017-05-28 10:11 | DS ---
Date/Time of Note Date/Time of Note DATE: 05/28/17 TIME: 10:07 Obstetrical Discharge Record Final Diagnosis Final Diagnosis: delivered Other Final Diagnosis 37 weeks and 3 days Section Section: Repeat Condition on Discharge Physical Assessment Last Vitals: Post C section day 3 Doing Well Afebrile Ambulatory Chest Clear Breasts are soft , Nipples are intact not barest feeding the baby Abdomen is soft Fundus is firm Moderate amount of lochia Incision is clean ,No evidence of infection No calf tenderness No ankle edema Drug addict Current Medications Medications (Trade) Dose Ordered Sig/Haider Route PRN Reason Start Time Stop Time Status Last Admin Dose Admin Lactated Ringer's 1,000 ml @ 125 mls/hr Q8H IV 05/24/17 21:19 05/25/17 01:31 DC 05/24/17 21:35 Cefazolin Sodium/ Dextrose 50 ml @ 100 mls/hr ONCE IV 05/24/17 21:30 05/25/17 01:31 DC Oxytocin/Lactated Ringer's 500 ml @ 125 mls/hr ONCE IV 05/24/17 21:30 05/25/17 01:31 DC Oxytocin/Lactated Ringer's 500 ml @ 0 mls/hr ONCE PRN IV For Hemorrhage Management 05/24/17 21:30 05/25/17 01:31 DC Methylergonovine Maleate (Methergine) 0.2 mg ONCE PRN IM VAGINAL BLEEDING 05/24/17 21:30 05/25/17 01:31 DC Carboprost Tromethamine (Hemabate) 250 mcg ONCE PRN IM VAGINAL BLEEDING 05/24/17 21:30 05/25/17 01:31 DC Misoprostol (Cytotec) 1,000 mcg ONCE PRN [place] VAGINAL BLEEDING 05/24/17 21:30 05/25/17 01:31 DC Terbutaline Sulfate 0.25 mg 0.25 mg ONCE ONCE SC 05/24/17 21:30 05/24/17 21:31 DC 05/24/17 21:36 Terbutaline Sulfate (Brethine) 1 ml @ ud STK-MED ONCE .ROUTE 05/24/17 21:23 05/24/17 21:24 DC Morphine Sulfate (Duramorph) 10 mg STK-MED ONCE .ROUTE 05/24/17 23:53 05/24/17 23:54 DC Phenylephrine HCl (Marcio-Synephrine Inj Syg) 500 mcg STK-MED ONCE .ROUTE 05/25/17 00:12 05/25/17 00:13 DC Phenylephrine HCl (Marcio-Synephrine Inj Syg) 500 mcg STK-MED ONCE .ROUTE 05/25/17 00:17 05/25/17 00:18 DC Fentanyl (Sublimaze) 100 mcg STK-MED ONCE .ROUTE 05/25/17 00:30 05/25/17 00:31 DC Phenylephrine HCl (Marcio-Synephrine Inj Syg) 500 mcg STK-MED ONCE .ROUTE 05/25/17 00:46 05/25/17 00:47 DC Phenylephrine HCl (Marcio-Synephrine Inj Syg) 500 mcg STK-MED ONCE .ROUTE 05/25/17 01:02 05/25/17 01:03 DC Hydromorphone HCl (Dilaudid (Rec)) 0.2 mg PACU ORDER PRN IV MILD PAIN LEVEL 1-3 05/25/17 01:30 05/25/17 01:31 DC Hydromorphone HCl (Dilaudid (Rec)) 0.4 mg PACU ORDER PRN IV MODERATE PAIN LEVEL 4-6 05/25/17 01:30 05/25/17 01:31 DC Hydromorphone HCl (Dilaudid (Rec)) 0.6 mg PACU ORDER PRN IV SEVERE PAIN LEVEL 7-10 05/25/17 01:30 05/25/17 01:31 DC Fentanyl (Sublimaze) 25 mcg PACU ORDER PRN IV MILD PAIN LEVEL 1-3 05/25/17 01:30 05/25/17 01:31 DC Fentanyl (Sublimaze) 50 mcg PACU ODER PRN IV MODERATE PAIN LEVEL 4-6 05/25/17 01:30 05/25/17 01:31 DC Fentanyl (Sublimaze) 75 mcg PACU ORDER PRN IV SEVERE PAIN LEVEL 7-10 05/25/17 01:30 05/25/17 01:31 DC Diphenhydramine HCl (Benadryl) 25 mg PACU ORDER PRN IV PRURITUS 05/25/17 01:30 05/25/17 01:31 DC Naloxone HCl (Narcan) 0.1 mg Q2M PRN IV FOR RESP RATE 8 OR LESS 05/25/17 01:30 05/25/17 01:31 DC Ketorolac Tromethamine (Toradol) 30 mg Q6H PRN IV PAIN 05/25/17 01:30 05/25/17 01:31 DC Hydromorphone HCl (Dilaudid) 0.2 mg Q3H PRN IV PAIN LEVEL 1-5 05/25/17 01:30 05/25/17 01:31 DC Hydromorphone HCl (Dilaudid) 0.4 mg Q3H PRN IV PAIN LEVEL 6-10 05/25/17 01:30 05/25/17 01:31 DC Diphenhydramine HCl (Benadryl) 25 mg Q6H PRN IV ITCHING 05/25/17 01:30 05/25/17 01:31 DC Zolpidem Tartrate 5 mg 5 mg HS MAY REPEAT X 1 PRN PO INSOMNIA 05/25/17 01:30 05/25/17 01:31 DC Lactated Ringer's 1,000 ml @ 125 mls/hr Q8H IV 05/25/17 01:27 05/26/17 02:25 DC 05/25/17 18:38 Oxytocin/Lactated Ringer's 500 ml @ 125 mls/hr Q4H IV 05/25/17 01:27 05/25/17 09:26 DC 05/25/17 06:21 Acetaminophen/ Hydrocodone Bitart ([place] (5/325)) 1 tab Q4H PRN PO PAIN LEVEL 4-6 05/25/17 01:30 05/28/17 09:01 Ibuprofen (Motrin) 600 mg Q6 PO 05/25/17 06:00 05/28/17 06:39 Simethicone (Mylicon) 160 mg Q8H PRN PO DISTENSION/GAS/BLOATING 05/25/17 01:30 05/26/17 20:18 Lanolin (Xsr-T-Brloey) 1 applic BEDSIDE MEDICATION PRN TOP BEDSIDE FOR BHANU TO NIPPLES 05/25/17 01:30 Diphtheria/ Tetanus/Acell Pertussis (Adacel) 0.5 ml ONCE ONCE IM* 05/28/17 09:00 05/28/17 09:01 DC Measles/Mumps/ Rubella Vaccine Live 0.5 ml 0.5 ml ONCE ONCE SC* 05/28/17 09:00 05/28/17 09:01 DC Oxytocin/Lactated Ringer's 500 ml @ 0 mls/hr ONCE PRN IV For Hemorrhage Management 05/25/17 01:30 Carboprost Tromethamine (Hemabate) 250 mcg ONCE PRN IM VAGINAL BLEEDING 05/25/17 01:30 Misoprostol (Cytotec) 1,000 mcg ONCE PRN [place] VAGINAL BLEEDING 05/25/17 01:30 Naloxone HCl (Narcan) 0.1 mg Q2M PRN IV FOR RESP RATE 8 OR LESS 05/25/17 02:00 05/26/17 01:59 DC Diphenhydramine HCl (Benadryl) 25 mg Q6H PRN IV ITCHING 05/25/17 02:00 05/26/17 01:59 DC 05/25/17 22:40 Ondansetron HCl (Zofran Inj) 4 mg Q6H PRN IV NAUSEA AND/OR VOMITING 05/25/17 02:00 05/26/17 01:59 DC 05/25/17 02:06 Zolpidem Tartrate (Ambien) 5 mg HS MAY REPEAT X 1 PRN PO INSOMNIA 05/25/17 02:00 05/26/17 01:59 DC Naloxone HCl (Narcan) 0.1 mg Q2M PRN IV FOR RESP RATE 8 OR LESS 05/25/17 02:00 05/26/17 01:59 DC Hydromorphone HCl (Dilaudid) 0.2 mg Q3H PRN IV PAIN LEVEL 1-5 05/25/17 02:00 05/25/17 02:01 DC Hydromorphone HCl (Dilaudid) 0.4 mg Q3H PRN IV PAIN LEVEL 6-10 05/25/17 02:00 05/25/17 02:01 DC Hydromorphone HCl (Dilaudid) 0.2 mg Q3H PRN IV PAIN LEVEL 1-5 05/25/17 02:01 05/25/17 06:01 DC Hydromorphone HCl (Dilaudid) 0.4 mg Q3H PRN IV PAIN LEVEL 6-10 05/25/17 02:01 05/25/17 06:02 DC 05/25/17 02:06 Hydromorphone HCl (Dilaudid) 0.2 mg Q3H PRN IV PAIN LEVEL 1-5 05/25/17 06:30 05/26/17 01:59 DC Hydromorphone HCl (Dilaudid) 0.4 mg Q3H PRN IV PAIN LEVEL 6-10 05/25/17 06:02 05/26/17 01:59 DC 05/26/17 00:16 Oxytocin/Lactated Ringer's 30 unit STK-MED ONCE IV 05/25/17 00:00 05/26/17 16:43 DC Ephedrine Sulfate 50 mg STK-MED ONCE .ROUTE 05/25/17 00:00 05/26/17 16:43 DC New born is doing well, Voiding: Yes Bowel Movement: Yes Breast: Soft, non-tender Fundus: Firm Abdomen and Incision: healing well Calf Tenderness: No Patient Condition: Stable AVA STOCK MD May 28, 2017 10:11
--- NOTE | 2017-06-01 19:52 | CONS ---
Date/Time of Note Date/Time of Note DATE: 06/01/17 TIME: 19:52 Consultation Date/Type/Reason Admit Date/Time May 24, 2017 at 21:13 Initial Consult Date 05/24/17 Type of Consultation: Anesthesiology Reason for Consultation Follow up 24 HR Interval Summary Free Text/Dictation Pt seen and examined on 05/25/17 was POD#1 s/p repeat c/s. Pt received spinal duramorph for post-op pain and stated her pain was adequately controlled. No N/V /D/C/MELCHOR/Numbness in extremities. Exam/Review of Systems Vital Signs Vitals Vital Signs Date Time Temp Pulse Resp B/P Pulse Ox O2 Delivery O2 Flow Rate FiO2 05/28/17 08:40 98.6 61 18 96/63 Room Air RYDER MENDEZ Jun 01, 2017 19:52
== END 2017-05-28 12:30 | disposition home or self-care (01) | DRG 766 ==
LOC: OBT 20:53 → L-D 20:53 → OBT 21:13 → L-D 21:13 → PP1 05-25 03:54
PROVIDERS: ADMIT Obstetrics & Gynecology Obstetrics; ATTEND Obstetrics & Gynecology Obstetrics
PROC: 10D00Z1 Extraction of Products of Conception, Low, Open Approach (ICD-10-PCS; principal; 2017-05-25)
PROC: 3E0P3VZ Introduction of Hormone into Female Reproductive, Percutaneous Approach (ICD-10-PCS; 2017-05-25)
DX: O34.211 Maternal care for low transverse scar from previous cesarean delivery (principal); F90.1 Attention-deficit hyperactivity disorder, predominantly hyperactive type; Z37.0 Single live birth; Z3A.37 37 weeks gestation of pregnancy
CPT/HCPCS: 80076; 80307; 81003; 85025; 85610; 85730; 86592; 86703; 86762; 86803; 86850; 86900; 86901; 87340; 87522; 87591; 88307; 90715; 94760; 99464; G0463; J0690; J1170; J1200; J2274; J2370; J2405; J2590; J3010; J3105; J7120